=== PATIENT | male | born 1940 | race Caucasian/White ===

== ENCOUNTER → 2018-08-24 | Outpatient (CLI) | payer MEDICARE | END | disposition home or self-care (01) | LOC: SHCH 11:19 | PROVIDERS: ATTEND Internal Medicine Cardiovascular Disease | DX: I08.3 Combined rheumatic disorders of mitral, aortic and tricuspid valves (principal) | CPT/HCPCS: 93306 ==

== ENCOUNTER → 2018-08-25 | Outpatient (CLI) | payer MEDICARE ==
[~2018-08-25] MED LIST: REGADENOSON 0.4 MG/5 ML PF SYG IVP SCH
== END | disposition home or self-care (01) ==
LOC: SHCH 09:04
PROVIDERS: ATTEND Internal Medicine Cardiovascular Disease
DX: I11.9 Hypertensive heart disease without heart failure (principal); R06.00 Dyspnea, unspecified; R06.9 Unspecified abnormalities of breathing
CPT/HCPCS: 78452; 93017; 96374; A9500 ×2; J2785

== ENCOUNTER 2018-10-07 05:57 | Observation (INO) | payer MEDICARE ==
[2018-10-05 08:45] LABS: BASOPHILS % (AUTO) 0.6 % (0.0-5.0); EOSINOPHILS % (AUTO) 2.3 % (0.0-8.0); HEMATOCRIT 44.6 % (42-54); LYMPHOCYTES % (AUTO) 17.2 % (21.0-51.0); MEAN CORPUSCULAR HGB CONC 34.4 g/dL (32.0-36.0); MEAN CORPUSCULAR VOLUME 90.2 fL (79-99); MONOCYTES % (AUTO) 9.7 % (3.0-13.0); NEUTROPHILS % (AUTO) 70.2 % (40.0-77.0); PLATELET COUNT (AUTO) 197 K/uL (130-400); RED BLOOD CELL COUNT(AUTO) 4.95 MIL/uL (4.50-6.20); RED CELL DISTRIBUTION WIDTH 14.3 % (11.0-15.5); WHITE BLOOD COUNT (AUTO) 7.6 K/uL (4.8-10.8)
[2018-10-05 08:55] LABS: CREATININE 1.2 mg/dL (0.5-1.5); INR 1.08 (0.85-1.15); PARTIAL THROMBOPLASTIN TIME 30.9 SEC (26.3-35.5); POTASSIUM 3.5 mmol/L (3.5-5.1); PROTHROMBIN TIME 11.3 SEC (9.6-11.6)
[2018-10-05 09:32] VITALS: BP 134/64
[~2018-10-07] VITALS: Ht 195.6 cm; Wt 120.9 kg
[2018-10-07] VITALS (12 sets, daily range): BP systolic 112–143; BP diastolic 62–95
[~2018-10-07 05:57] MED LIST changes: +AMLO10TA7 PO; +ASPI-555 PO; +BUPR300T54 PO; +CARV25TA PO; +LOSA100T58 PO; +MAGN400T25 PO; +MONT10TA24 PO; -REGADENOSON 0.4 MG/5 ML PF SYG IVP SCH; +TORS20TA4 PO
[2018-10-07] MEDS ORDERED: SODIUM CHLORIDE 0.9% 1000ML 1,000 ML IV ONE (06:50)
[2018-10-07] MEDS ORDERED: METH1TAB30 PO (07:29)
[2018-10-07] MEDS ORDERED: POTA10CA44 PO (07:29)
[2018-10-07] MEDS ORDERED: BUPIVACAINE/PF 0.25% 30ML VIAL IJ ONE (09:45)
[2018-10-07] MEDS ORDERED: LIDOCAINE HCL 1% MDV 50ML VIAL ONE (09:46)
[2018-10-07] MEDS ORDERED: IODIXANOL 320 MG/ML 100 ML VIAL ONE (09:46)
[2018-10-07] MEDS ORDERED: CEFAZOLIN SODIUM 1 GM VIAL ONE (09:46)
--- NOTE | 2018-10-07 10:00 | NUR ---
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
[2018-10-07] MEDS ORDERED: MEPERIDINE-PF 25 MG/ML SYG ONE ×6 (10:18→12:17)
[2018-10-07] MEDS ORDERED: MIDAZOLAM HCL 1 MG/ML 2ML VIAL ONE ×6 (10:18→12:18)
[2018-10-07] MEDS ORDERED: THROMBIN-JMI 5000 UNIT/VIAL TP ONE (11:38)
[2018-10-07] MEDS ORDERED: OCTYL 2-CYANOACRYLATE 1 EACH TP ONE (12:24)
[2018-10-07] MEDS ORDERED: ONDANSETRON HCL 4 MG/2 ML VIAL IV PRN (12:45)
[2018-10-07] MEDS ORDERED: ACETAMINOPHEN-CODEINE 300/30MG TAB PO PRN (12:45)
--- NOTE | 2018-10-07 13:25 | NUR ---
RECEIVED FROM [facility] [facility] VIA BED ACCOMPANIED BY [employer] STAFF. AAOX3, RESP.'S EVEN AND UNLABORED. DENIES ANY C/O SOB, DENIES ANY CURRENT PAIN. LEFT UPPER CHEST DRSG IN PLACE, D/I. LEFT ARM WITH SLING IN PLACE. COLD PACK IN PLACE. INFORMED OF STRICT BR PER MD ORDERS, VERBALIZED UNDERSTANDING. COMPLETE ASSESSMENT DONE. CALL LIGHT WITHIN REACH. BED LOW, SIDE RAILS UP X3.
--- NOTE | 2018-10-07 17:05 | NUR ---
SITTING UP IN BED EATING DINNER W/O C/O. CALL LIGHT WITHIN REACH.
[2018-10-07] MEDS: TORSEMIDE 20 MG TAB PO SCH (17:12)
[2018-10-07] MEDS: POTASSIUM CHLORIDE 10 MEQ/TAB.SA PO SCH (17:13)
--- NOTE | 2018-10-07 19:15 | NUR ---
IN AND OUT CATHETERIZATION PERFORMED WITH STERILE TECHNIQUE. TOLERATED WELL. 1250ML CLEAR YELLOW URINE OBTAINED.
[2018-10-07] MEDS: CEFAZOLIN SODIUM 1 GM VIAL IVP SCH (19:42)
[2018-10-07] MEDS: ACETAMINOPHEN-CODEINE 300/30MG TAB PO PRN (19:49)
[2018-10-07] MEDS ORDERED: LOSARTAN 100 MG TABLET PO SCH (21:00)
[2018-10-07] MEDS ORDERED: MONTELUKAST SODIUM 10 MG TAB PO SCH (21:00)
[2018-10-07] MEDS ORDERED: AMLODIPINE BESYLATE 5 MG TAB PO SCH (21:00)
[2018-10-07] MEDS ORDERED: ASPIRIN 81 MG EC TAB PO SCH (21:00)
[2018-10-07] MEDS: CARVEDILOL 25 MG TABLET PO SCH (21:38)
[2018-10-08] MEDS: CEFAZOLIN SODIUM 1 GM VIAL IVP SCH (02:23)
[2018-10-08 04:15] VITALS: BP 129/64
[2018-10-08] MEDS: ACETAMINOPHEN-CODEINE 300/30MG TAB PO PRN (06:25)
[2018-10-08 07:00] VITALS: BP 137/76
[2018-10-08] MEDS: CARVEDILOL 25 MG TABLET PO SCH (08:43)
[2018-10-08] MEDS: POTASSIUM CHLORIDE 10 MEQ/TAB.SA PO SCH (08:43)
[2018-10-08] MEDS: TORSEMIDE 20 MG TAB PO SCH (08:43)
[2018-10-08] MEDS ORDERED: METHENAMINE HIPPURATE 1 GM PO SCH (09:00)
[2018-10-08] MEDS ORDERED: MAGNESIUM OXIDE 400 MG TABLET PO SCH (09:00)
[2018-10-08] MEDS ORDERED: BUPROPION HCL 150 MG TABLET.SA PO SCH (09:00)
[2018-10-08 11:00] VITALS: BP 136/76
[2018-10-08] MEDS ORDERED: CEPH-578 PO (12:27)
== END 2018-10-08 15:05 | disposition home or self-care (01) ==
LOC: DAH 05:57 → DAHIP 05:58 → 2DH 13:22
PROVIDERS: ADMIT Internal Medicine; ATTEND Internal Medicine
DX: I50.42 Chronic combined systolic (congestive) and diastolic (congestive) heart failure (principal); E66.9 Obesity, unspecified; I42.0 Dilated cardiomyopathy; Z85.810 Personal history of malignant neoplasm of tongue; Z95.0 Presence of cardiac pacemaker; Z90.5 Acquired absence of kidney; Z88.8 Allergy status to other drugs, medicaments and biological substances; Z79.899 Other long term (current) drug therapy
CPT/HCPCS: 33225; 33233; 33249; 36415; 71046; 80048; 85025; 85610; 85730; 93005; 96374; 96376; A4606; C1769 ×2; C1882; C1894; C1895; C1900; G0378 ×33; J0690 ×3; J2175 ×6; J2250 ×6; J3490 ×3; J7030; Q9967; 99156; 99157

== ENCOUNTER 2020-04-04 05:57 | Day surgery (SDC) | payer MEDICARE ==
[2020-03-28 12:18] LABS: BASOPHILS % (AUTO) 0.8 % (0.0-5.0); EOSINOPHILS % (AUTO) 3.2 % (0.0-8.0); HEMATOCRIT 44.3 % (42-54); LYMPHOCYTES % (AUTO) 16.9 % (21.0-51.0); MEAN CORPUSCULAR HEMOGLOBIN 30.4 pg (27.0-33.0); MEAN CORPUSCULAR HGB CONC 33.2 g/dL (32.0-36.0); MEAN CORPUSCULAR VOLUME 91.5 fL (79-99); MONOCYTES % (AUTO) 9.8 % (3.0-13.0); NEUTROPHILS % (AUTO) 68.7 % (40.0-77.0); PLATELET COUNT (AUTO) 225 K/uL (130-400); RED BLOOD CELL COUNT(AUTO) 4.84 MIL/uL (4.50-6.20); RED CELL DISTRIBUTION WIDTH 13.5 % (11.0-15.5); WHITE BLOOD COUNT (AUTO) 6.6 K/uL (4.8-10.8)
[2020-03-28 12:33] LABS: CREATININE 1.6 mg/dL (0.5-1.5); POTASSIUM 3.7 mmol/L (3.5-5.1)
[2020-03-28 12:39] LABS: INR 1.14 (0.85-1.15); PARTIAL THROMBOPLASTIN TIME 32.2 SEC (26.3-35.5); PROTHROMBIN TIME 12.3 SEC (9.6-11.6)
[2020-03-31 11:50] VITALS: BP 136/68
[~2020-04-04] VITALS: Ht 198.1 cm; Wt 118.1 kg
[2020-04-04] VITALS (10 sets, daily range): BP systolic 108–127; BP diastolic 64–77
[~2020-04-04 05:57] MED LIST changes: +AMLO-258 PO; -AMLO10TA7 PO; +APIX5TAB PO; -ASPI-555 PO; +ASPI-556 PO; +BUPR-317 PO; -BUPR300T54 PO; +DRON400T2 PO; +METH1TAB30 PO; -MONT10TA24 PO; +MONT10TA96 PO; +POTA10CA44 PO
[2020-04-04] MEDS ORDERED: SODIUM CHLORIDE 0.9% 1000ML 1,000 ML IV ONE (06:09)
[2020-04-04] MEDS ORDERED: PROPOFOL 10 MG/ML 20ML VIAL IV ONE (07:18)
[2020-04-04] MEDS ORDERED: GLYCOPYRROLATE 1 MG/5 ML SYRINGE ONE (07:19)
[2020-04-04] MEDS ORDERED: ATROPINE SULFATE 0.1 MG/ML 10 ML SYG IVP ONE (07:19)
[2020-04-04] MEDS ORDERED: SODIUM CHLORIDE 0.9% 1000ML 1,000 ML IV SCH (08:00)
== END 2020-04-04 09:35 | disposition home or self-care (01) ==
LOC: DAH 05:57 → CLH 05:57
PROVIDERS: ATTEND Internal Medicine Cardiovascular Disease
DX: I48.19 Other persistent atrial fibrillation (principal); I10 Essential (primary) hypertension; I45.10 Unspecified right bundle-branch block; I21.9 Acute myocardial infarction, unspecified; Z85.528 Personal history of other malignant neoplasm of kidney; Z95.810 Presence of automatic (implantable) cardiac defibrillator; Z88.1 Allergy status to other antibiotic agents; Z79.899 Other long term (current) drug therapy; Z20.828 Contact with and (suspected) exposure to other viral communicable diseases
CPT/HCPCS: 36415; 80048; 82948; 85025; 85610; 85730; 92960; 93005 ×3; A4215; A4216; A4221; A4222; A4223 ×3; A4606; A4615; A4663; A7002; C9803; J0461; J2704; J3490; J7030; U0003

== ENCOUNTER → 2020-10-18 | Outpatient (CLI) | payer MEDICARE ==
[~2020-10-18] MED LIST changes: -DRON400T2 PO; +DRON400T7 PO; +MONT10TA32 PO; -MONT10TA96 PO
== END | disposition home or self-care (01) ==
LOC: SHCH 14:51
PROVIDERS: ATTEND Internal Medicine Cardiovascular Disease
DX: I42.0 Dilated cardiomyopathy (principal)
CPT/HCPCS: 93306

== ENCOUNTER → 2020-11-24 | Outpatient (CLI) | payer MEDICARE ==
[~2020-11-24] VITALS: Ht 195.6 cm
[~2020-11-24] MED LIST changes: +0.9%NACL 1000ML 1,000 ML IV ONE; +AMIO400T4 PO; +CARV12.511 PO; +LOSA50TA64 PO; +SPIR25TA6 PO
[2020-11-24 10:24] LABS: BASOPHILS % (AUTO) 0.7 % (0.0-5.0); EOSINOPHILS % (AUTO) 2.3 % (0.0-8.0); HEMATOCRIT 42.6 % (42-54); LYMPHOCYTES % (AUTO) 14.6 % (21.0-51.0); MEAN CORPUSCULAR HEMOGLOBIN 30.8 pg (27.0-33.0); MEAN CORPUSCULAR HGB CONC 31.7 g/dL (32.0-36.0); MONOCYTES % (AUTO) 9.5 % (3.0-13.0); NEUTROPHILS % (AUTO) 71.4 % (40.0-77.0); PLATELET COUNT (AUTO) 207 K/uL (130-400); RED BLOOD CELL COUNT(AUTO) 4.39 MIL/uL (4.50-6.20); RED CELL DISTRIBUTION WIDTH 13.1 % (11.0-15.5)
[2020-11-24 10:35] LABS: INR 1.19 (0.85-1.15); PROTHROMBIN TIME 12.8 SEC (9.6-11.6)
[2020-11-24 10:37] LABS: PARTIAL THROMBOPLASTIN TIME 29.7 SEC (26.3-35.5)
[2020-11-24 10:40] LABS: CREATININE 2.3 mg/dL (0.5-1.5); POTASSIUM 4.9 mmol/L (3.5-5.1)
[2020-11-27 10:25] VITALS: BP 106/63
[2020-11-28 09:50] VITALS: BP 125/63
== END | disposition home or self-care (01) ==
LOC: EDSTATUS 09:00 → DAH 10:00
PROVIDERS: ATTEND Internal Medicine Cardiovascular Disease
DX: Z01.810 Encounter for preprocedural cardiovascular examination (principal); I48.4 Atypical atrial flutter; I45.10 Unspecified right bundle-branch block; I25.2 Old myocardial infarction; I48.0 Paroxysmal atrial fibrillation; I50.9 Heart failure, unspecified; E66.9 Obesity, unspecified; F17.200 Nicotine dependence, unspecified, uncomplicated; Z53.9 Procedure and treatment not carried out, unspecified reason; Z79.01 Long term (current) use of anticoagulants; Z79.899 Other long term (current) drug therapy; Z95.0 Presence of cardiac pacemaker; Z90.5 Acquired absence of kidney; Z85.3 Personal history of malignant neoplasm of breast; Z85.810 Personal history of malignant neoplasm of tongue; Z68.31 Body mass index [BMI] 31.0-31.9, adult
CPT/HCPCS: 36415; 80048; 85025; 85610; 85730; 93005

== ENCOUNTER 2021-02-21 11:08 | Emergency (ER) | payer MEDICARE ==
[~2021-02-21] VITALS: Ht 198.1 cm; Wt 108.9 kg
[~2021-02-21 11:08] MED LIST changes: -0.9%NACL 1000ML 1,000 ML IV ONE; -AMLO-258 PO; -ASPI-556 PO; -CARV25TA PO; -DRON400T7 PO; -LOSA100T58 PO; -MAGN400T25 PO; -METH1TAB30 PO; -POTA10CA44 PO
[2021-02-21 11:10] VITALS: BP 130/69
[2021-02-21] MEDS ORDERED: ACETAMINOPHEN 500 MG TABLET PO ONE (12:00)
[2021-02-21] MEDS ORDERED: ACET-66 PO (12:43)
== END 2021-02-21 13:23 | disposition home or self-care (01) ==
LOC: EDH 11:08
DX: S82.61XA Displaced fracture of lateral malleolus of right fibula, initial encounter for closed fracture (principal); E11.9 Type 2 diabetes mellitus without complications; I10 Essential (primary) hypertension; Z98.890 Other specified postprocedural states; Z88.1 Allergy status to other antibiotic agents; Z88.8 Allergy status to other drugs, medicaments and biological substances; Z88.2 Allergy status to sulfonamides; Z79.899 Other long term (current) drug therapy; Z79.01 Long term (current) use of anticoagulants; W19.XXXA Unspecified fall, initial encounter; Y93.89 Activity, other specified; Y92.89 Other specified places as the place of occurrence of the external cause; Y99.8 Other external cause status
CPT/HCPCS: 29515; 73610; 73630

== ENCOUNTER → 2021-10-17 | Outpatient (CLI) | payer MEDICARE ==
[~2021-10-17] MED LIST changes: +ACET-66 PO; +MONT-39 PO; -MONT10TA32 PO
== END | disposition home or self-care (01) ==
LOC: SHCH 13:51
PROVIDERS: ATTEND Internal Medicine Cardiovascular Disease
DX: I08.8 Other rheumatic multiple valve diseases (principal); I13.10 Hypertensive heart and chronic kidney disease without heart failure, with stage 1 through stage 4 chronic kidney disease, or unspecified chronic kidney disease; N18.4 Chronic kidney disease, stage 4 (severe); I31.3 Pericardial effusion (noninflammatory); I42.0 Dilated cardiomyopathy; I48.91 Unspecified atrial fibrillation; E66.9 Obesity, unspecified; Z95.0 Presence of cardiac pacemaker
CPT/HCPCS: 93306

== ENCOUNTER 2022-01-22 14:51 | Emergency (ER) | payer MEDICARE ==
[~2022-01-22] VITALS: Ht 198.1 cm; Wt 104.3 kg
[2022-01-22 15:38] LABS: BASOPHILS % (AUTO) 0.9 % (0.0-5.0); EOSINOPHILS % (AUTO) 5.4 % (0.0-8.0); HEMATOCRIT 22.6 % (42-54); LYMPHOCYTES % (AUTO) 23.1 % (21.0-51.0); MEAN CORPUSCULAR HEMOGLOBIN 28.6 pg (27.0-33.0); MEAN CORPUSCULAR HGB CONC 30.5 g/dL (32.0-36.0); MEAN CORPUSCULAR VOLUME 93.8 fL (79-99); MONOCYTES % (AUTO) 10.9 % (3.0-13.0); NEUTROPHILS % (AUTO) 58.4 % (40.0-77.0); NUCLEATED RED BLOOD CELLS 0.5 % (0.0-0.19); PLATELET COUNT (AUTO) 309 K/uL (130-400); RED BLOOD CELL COUNT(AUTO) 2.41 MIL/uL (4.50-6.20); WHITE BLOOD COUNT (AUTO) 5.6 K/uL (4.8-10.8)
[2022-01-22 15:49] LABS: ALBUMIN 2.5 g/dL (3.5-5.0); CREATININE 1.7 mg/dL (0.5-1.5); TOTAL PROTEIN, SERUM 6.2 g/dL (6.0-8.3)
[2022-01-22 15:53] LABS: POTASSIUM 2.8 mmol/L (3.5-5.1)
[2022-01-22] MEDS ORDERED: POTASSIUM BICARB/CIT AC 25 MEQ TABLET.EFF PO STA (15:53)
[2022-01-22 18:10] VITALS: BP 129/64
[2022-01-22] MEDS ORDERED: POTA-187 PO (19:03)
== END 2022-01-22 21:06 | disposition home or self-care (01) ==
LOC: EDH 14:51
DX: D64.9 Anemia, unspecified (principal); E87.6 Hypokalemia; I48.91 Unspecified atrial fibrillation; J44.9 Chronic obstructive pulmonary disease, unspecified; F32.A Depression, unspecified; Z98.890 Other specified postprocedural states; Z88.1 Allergy status to other antibiotic agents; Z88.8 Allergy status to other drugs, medicaments and biological substances; Z88.2 Allergy status to sulfonamides
CPT/HCPCS: 99285; 36430; 71045; 83735; 80053; 85025; 86850; 86900; 86901; 86923; 36415; P9016